=== PATIENT | female | born 1930 | race Caucasian/White ===

== ENCOUNTER 2016-10-28 12:18 | Emergency (ER) | payer OTHER, BC | END 2016-10-28 14:47 | disposition home or self-care (01) | LOC: ER 12:18 | DX: R04.0 Epistaxis (principal); I10 Essential (primary) hypertension; E78.5 Hyperlipidemia, unspecified; I25.2 Old myocardial infarction; F10.99 Alcohol use, unspecified with unspecified alcohol-induced disorder; Z96.653 Presence of artificial knee joint, bilateral; Z91.041 Radiographic dye allergy status; Z88.5 Allergy status to narcotic agent; Z88.8 Allergy status to other drugs, medicaments and biological substances ==

== ENCOUNTER 2016-11-04 18:14 | Emergency (ER) | payer OTHER, BC ==
[~2016-11-04] VITALS: Ht 172.7 cm; Wt 65.8 kg
[~2016-11-04 18:14] MED LIST: ASPIR-LOW81 MG PO; BYSTOLIC 5 MG5 M1 PO; COZAAR 50 MG TA50 M2 PO; COZAAR100 MG PO; EFFIENT10 MG PO; ESTRACE1 MG PO; GABAPENTIN 100100 MG PO; HYDROCHLOROTH12.5 M2 PO; HYDROCHLOROTHIA25 M1 PO; HYDROCHLOROTHIA25 M2 PO; KEFLEX500 MG PO; LEVOTHYROXINE0.05 MG PO; LIPITOR10 MG PO; LIPITOR40 MG PO; MOBIC15 MG PO; MOBIC7.5 MG PO; NORCO 5-325 TA1 EACH PO; PLAVIX 75 MG TA75 M1 PO; PRAVACHOL20 MG PO; PRAVASTATIN SOD20 MG; PREMARIN0.45 MG PO; SIMVASTATIN5 MG; TOPROL XL50 MG PO; TRAMADOL 50 MG50 MG PO; TYLENOL325 MG PO
[2016-11-04] MEDS ORDERED: MELOXICAM15 MG PO (19:05)
[2016-11-04 19:39] LABS: HEMATOCRIT 36.1 % (37.0-47.0); HEMOGLOBIN 12.3 gm/dL (12.0-15.0); MCH 31.9 pg (26.0-34.0); MCHC 34.1 g/dL (28.0-37.0); MCV 93.5 fL (80.0-100.0); RBC 3.86 mil/uL (4.20-5.00); RDW 13.6 % (10.5-14.5)
[2016-11-04 19:53] LABS: PROTIME 10.2 Seconds (9.3-11.4)
== END 2016-11-04 23:55 | disposition home or self-care (01) ==
LOC: ER 18:14
PROVIDERS: Emergency Medicine
DX: R04.0 Epistaxis (principal); I10 Essential (primary) hypertension; E78.5 Hyperlipidemia, unspecified; I25.2 Old myocardial infarction; F10.99 Alcohol use, unspecified with unspecified alcohol-induced disorder; Z98.890 Other specified postprocedural states; Z88.8 Allergy status to other drugs, medicaments and biological substances; Z91.018 Allergy to other foods; Z88.5 Allergy status to narcotic agent; Z96.653 Presence of artificial knee joint, bilateral